=== PATIENT | female | born 1985 | race Two or more races ===

== ENCOUNTER 2016-08-05 07:55 | Emergency (ER) | payer MEDICAID ==
[2016-08-05 08:01] VITALS: RESP 16
[2016-08-05] MEDS ORDERED: NS 500 ML IV ONE (08:49)
[2016-08-05] MEDS ORDERED: MECLIZINE HCL 25 MG TAB PO ONE (08:50)
--- NOTE | 2016-08-05 08:52 | EDPHY ---
H & P Time Seen by Provider: 08/05/16 08:10 HPI/ROS: CHIEF COMPLAINT: Dizzy, weak HISTORY OF PRESENT ILLNESS: The patient is a 30-year-old female who presents to the emergency department complaining of dizziness. Her symptoms started yesterday while at work. She states it is worse when she moves her head or her eyes. She feels as though the room is spinning. no focal weakness or numbness. She has had a mild headache that is diffuse. She has no tinnitus or hearing loss. She denies any recent trauma. She has had nausea but no vomiting. No fevers or chills. No chest pain or shortness of breath. REVIEW OF SYSTEMS: My complete review of systems is negative except as mentioned in the HPI. Past Medical/Surgical History: Negative Past surgical history: Negative Social history: The patient does not smoke. Smoking Status: Never smoked Physical Exam: Vitals noted GENERAL: Well-appearing, in no acute distress, alert. HEENT: Eyes normal to inspection, normal pharynx, no signs of dehydration. NECK: No thyromegaly, no lymphadenopathy, supple. RESPIRATORY: Clear to auscultation bilaterally, no rales, rhonchi or wheezing. CVS: Regular rate and rhythm, no rubs, murmurs, or gallops. ABDOMEN: Soft, nontender, nondistended, no organomegaly. BACK: Normal to inspection, no CVA tenderness. SKIN: Normal color, no rash, warm, dry. No pallor. EXTREMITIES: No pedal edema, no calf tenderness, no Homans sign or cords, no joint swelling. NEURO/PSYCH: Higher functions: Alert and Oriented x3. Normal speech and cognition. Normal mood and affect. Cranial nerves: Normal as tested. Cerebellar: Normal as tested. Good finger to nose, good [id number], normal gait. Peripheral exam: Normal motor exam. Normal sensation. Normal reflexes. Constitutional: Initial Vital Signs Temperature (C) 36.6 C 08/05/16 07:57 Heart Rate 74 08/05/16 07:57 Respiratory Rate 16 08/05/16 07:57 Blood Pressure 110/67 08/05/16 07:57 O2 Sat (%) 100 08/05/16 07:57 O2 Delivery Mode Room Air Allergies/Adverse Reactions: Penicillins Allergy (Unknown, Verified 04/19/16 11:33) Home Medications: Medication Instructions Recorded Acyclovir [Zovirax 400 mg (*)] 400 mg PO TID 7 Days 04/19/16 Cephalexin [Keflex] 500 mg PO QID 10 Days 04/19/16 Sulfamethox/Tmp 800/160 mg 1 tab PO BID@1000,2200 10 Days 04/19/16 [Bactrim Ds] Meclizine HCl [Meclizine HCl 25 mg 25 mg PO TID #11 tab 08/05/16 (RX,OTC)] Medical Decision Making ED Course/Re-evaluation: In the emergency department I discussed possible etiologies with the patient. I answered all her questions. She consented to laboratory studies and CT imaging. Patient was given meclizine 25 mg orally for dizziness. I reviewed the patient's laboratory studies. They are unremarkable. Head CT: Please refer the dictated report by Dr. Deacon Martinez. No acute disease noted. Laboratory studies were unremarkable. EKG shows normal sinus rhythm, normal rate, normal axis, normal intervals. There are no ST or T-wave abnormalities. EKG is normal as interpreted by me. I gave the patient warnings prior to leaving. She will return with worsening symptoms. Differential Diagnosis: My differential includes but is not limited to ischemic CVA, hemorrhagic CVA, peripheral vertigo, dysrhythmia, electrolyte abnormality, sugar abnormality, , dissection, aneurysm - Data Points Laboratory Results: Laboratory Results 08/05/16 08:15 08/05/16 08:15 08/05/16 08/05/16 08/05/16 08:15 08:15 08:15 WBC 5.07 10^3/uL 10^3/uL (3.80-9.50) RBC 5.24 10^6/uL 10^6/uL (4.18-5.33) Hgb 15.9 g/dL g/dL (12.6-16.3) Hct 46.3 % % (38.0-47.0) MCV 88.4 fL fL (81.5-99.8) MCH 30.3 pg pg (27.9-34.1) MCHC 34.3 g/dL g/dL (32.4-36.7) RDW 13.2 % % (11.5-15.2) Plt Count 219 10^3/uL 10^3/uL (150-400) MPV 9.7 fL fL (8.7-11.7) Neut % (Auto) 53.0 % % (39.3-74.2) Lymph % (Auto) 36.7 % % (15.0-45.0) Lee % (Auto) 6.1 % % (4.5-13.0) Eos % (Auto) 2.8 % % (0.6-7.6) Baso % (Auto) 1.2 % % (0.3-1.7) Nucleat RBC Rel Count 0.0 % % (0.0-0.2) Absolute Neuts (auto) 2.69 10^3/uL 10^3/uL (1.70-6.50) Absolute Lymphs (auto) 1.86 10^3/uL 10^3/uL (1.00-3.00) Absolute Monos (auto) 0.31 10^3/uL 10^3/uL (0.30-0.80) Absolute Eos (auto) 0.14 10^3/uL 10^3/uL (0.03-0.40) Absolute Basos (auto) 0.06 10^3/uL 10^3/uL (0.02-0.10) Absolute Nucleated RBC 0.00 10^3/uL 10^3/uL (0-0.01) Immature Gran % 0.2 % % (0.0-1.1) Immature Gran # 0.01 10^3/uL 10^3/uL (0.00-0.10) Sodium 142 mEq/L mEq/L (134-144) Potassium 3.9 mEq/L mEq/L (3.5-5.2) Chloride 107 mEq/L mEq/L (97-110) Carbon Dioxide 26 mEq/l mEq/l (22-31) Anion Gap 9 mEq/L mEq/L (8-16) BUN 10 mg/dL mg/dL (7-23) Creatinine 0.7 mg/dL mg/dL (0.6-1.0) Estimated GFR > 60 Glucose 67 mg/dL L mg/dL (70-100) Calcium 9.2 mg/dL mg/dL (8.5-10.4) Troponin I < 0.012 ng/mL ng/mL (0-0.034) Beta HCG, Qual NEGATIVE Medications Given: Discontinued Medications Sodium Chloride (Ns) 500 mls @ 500 mls/hr IV EDNOW ONE Stop: 08/05/16 09:48 Last Admin: 08/05/16 08:50 Dose: 500 mls Meclizine HCl (Meclizine Hcl) 25 mg PO EDNOW ONE Stop: 08/05/16 08:51 Last Admin: 08/05/16 08:50 Dose: 25 mg Departure - Departure Disposition: Home, Routine, Self-Care Clinical Impression: Vertigo, Dizziness Condition: Good Instructions: Vertigo (ED) Additional Instructions: Return with increasing dizziness, chest pain, shortness of breath, fatigue or any other concerns. Your laboratory studies and head CT were normal. Use your medication as directed. Referrals: Jaye Steen NP [Primary Care Provider] - 2-3 days, call for appt.
[2016-08-05 08:58] LABS: % IMMATURE GRANULYOCYTES 0.2 % (0.0-1.1); ABSOLUTE IMMATURE GRANULOCYTES 0.01 10^3/uL (0.00-0.10); ADD DIFF? NO; ADD MORPH? NO; ADD SCAN? NO; ATYPICAL LYMPHOCYTE FLAG 30 (0-99); FRAGMENT RBC FLAG 0 (0-99); HEMATOCRIT 46.3 % (38.0-47.0); HEMOGLOBIN 15.9 g/dL (12.6-16.3); LEFT SHIFT FLG 0 (0-99); LIPEMIA HEMOLYSIS FLAG 90 (0-99); MEAN CELL HEMOGLOBIN 30.3 pg (27.9-34.1); MEAN CELL HEMOGLOBIN CONCENTR. 34.3 g/dL (32.4-36.7); MEAN CELL VOLUME 88.4 fL (81.5-99.8); MEAN PLATELET VOLUME 9.7 fL (8.7-11.7); PLATELET CLUMPS FLAG 10 (0-99); PLATELET COUNT 219 10^3/uL (150-400); RED BLOOD CELL COUNT 5.24 10^6/uL (4.18-5.33); RED CELL DISTRIBUTION WIDTH 13.2 % (11.5-15.2)
[2016-08-05 09:06] LABS: ANION GAP 9 mEq/L (8-16); CALCIUM 9.2 mg/dL (8.5-10.4); CARBON DIOXIDE 26 mEq/l (22-31); CHLORIDE 107 mEq/L (97-110); CREATININE 0.7 mg/dL (0.6-1.0); GLOMERULAR FILTRATION RATE > 60; GLUCOSE 67 mg/dL (70-100); POTASSIUM 3.9 mEq/L (3.5-5.2); SODIUM 142 mEq/L (134-144)
[2016-08-05 09:15] LABS: TROPONIN I < 0.012 ng/mL (0-0.034)
--- NOTE | 2016-08-05 10:31 | CPEKG ---
Heart Rate: 61 RR Interval: 984 P-R Interval: 132 QRSD Interval: 80 QT Interval: 416 QTC Interval: 419 P Yaphank: 35 QRS Yaphank: 51 T Wave Yaphank: 54 EKG Severity - NORMAL ECG - EKG Impression: SINUS RHYTHM Electronically Signed By: Pennie Acharya 05-Aug-2016 15:18:44
[2016-08-05 10:53] VITALS: BP 91/62; PULSE 60; TEMP 98.4; O2SAT 98
== END 2016-08-05 10:53 | disposition home or self-care (01) ==
DX: R42 Dizziness and giddiness (principal)

== ENCOUNTER → 2017-06-03 | Outpatient (CLI) | payer MEDICAID | LOC: FIMAGING 10:47 | PROVIDERS: ATTEND Family Medicine | DX: R10.2 Pelvic and perineal pain (principal); Z97.5 Presence of (intrauterine) contraceptive device ==